=== PATIENT | female | born 1970 | race Two or more races ===

== ENCOUNTER 2024-05-17 15:25 | Emergency (ER) | payer OTHER ==
[~2024-05-17] VITALS: Ht 149.9 cm; Wt 57.6 kg
[2024-05-17] MEDS ORDERED: 0.9 % SODIUM CHLORIDE 1,000 ML IV SCH (17:00)
[2024-05-17] MEDS ORDERED: METRONIDAZOLE/SODIUM CHLORIDE 500 MG/100 ML PIGGYBACK IV ONE ×2 (17:00→17:03)
[2024-05-17] MEDS ORDERED: LOPERAMIDE HCL 2 MG CAPSULE PO ONE ×2 (17:00→17:02)
[2024-05-17] MEDS ORDERED: FAMOTIDINE/PF 20 MG/2 ML VIAL IV PUSH ONE (17:00)
[2024-05-17] MEDS ORDERED: FAMOTIDINE/PF 20 MG/2 ML VIAL ONE (17:03)
[2024-05-17 18:08] LABS: HEMATOCRIT 41.2 % (36.0-45.00); HEMOGLOBIN 14.1 g/dL (12.0-15.00); MEAN CELL VOLUME 94.4 fL (80.00-100.00); MEAN CORPUSCULAR HEMOGLOBIN 32.2 pg (27.00-32.0); MEAN CORPUSCULAR HGB CONC 34.1 g/dl (32.0-36.0); PLATELET COUNT 280 K/uL (150-450); RED BLOOD COUNT 4.37 M/uL (4.00-6.00); RED CELL DISTRIBUTION WIDTH 13.5 % (11.5-14.5); URINE APPEARANCE Cloudy; URINE BILIRRUBIN Negative (NEGATIVE); URINE BLOOD Negative; URINE COLOR Yellow; URINE GLUCOSE Negative (NEGATIVE); URINE KETONE Trace (NEGATIVE); URINE LEUKOCYTE Negative; URINE NITRATE Negative; URINE PROTEIN Negative (NEGATIVE); URINE UROBILINOGEN 0.2 E.U./dl
[2024-05-17 18:12] LABS: URINE BACTERIA 59.8 uL (0.0-1933); URINE EPITHELIAL CELLS 16.9 uL (0.0-38.8); URINE RBC 3.5 uL (0.0-20.8); URINE WBC 2.8 uL (0.0-23.2)
[2024-05-17 18:15] LABS: URINE CAST 0.14 uL (0.0-1.40)
[2024-05-17 18:27] LABS: CALCIUM 10.2 mg/dL (8.5-10.1); CREATININE SERUM 0.83 mg/dL (0.55-1.02); GFR 72.47; POTASSIUM 3.96 mEq/L (3.5-5.1)
== END 2024-05-18 00:06 | disposition home or self-care (01) ==
LOC: ER 15:28 → EDBD 17:03 → ER 17:03
PROVIDERS: Emergency Medicine
DX: R19.7 Diarrhea, unspecified (principal); Z88.6 Allergy status to analgesic agent; R11.0 Nausea